=== PATIENT | male | born 1985 | race Caucasian/White ===

== ENCOUNTER 2020-04-16 18:42 | Emergency (ER) | payer OTHER, SELFPAY ==
--- NOTE | ~2020-04-16 | XR_ITS ---
EXAMINATION: XR hand LT min 3V DATE: 04/16/2020 20:07 INDICATION: Left hand injury with swelling and erythema TECHNIQUE: Posteroanterior, oblique and lateral views of the left hand were obtained. COMPARISON: 06/28/2005 FINDINGS: Alignment is normal. No fracture. Joint spaces are normal. Soft tissue swelling about the hands most prominent at the base and radial side of the second digit. IMPRESSION: 1. No osseous abnormality. Reviewed, dictated and finalized at location . UITER IMPRESSION: 1. No osseous abnormality.
[2020-04-16 18:46] VITALS: BP 115/70; PULSE 99; RESP 14; TEMP 36.2; O2SAT 99
--- NOTE | 2020-04-16 19:50 | PC.NURSE ---
resting on stretcher. ice water given. waiting for further orders from provider.
--- NOTE | 2020-04-16 20:03 | PC.NURSE ---
xray being done in room.
--- NOTE | 2020-04-16 20:16 | ED.GENADULT ---
HPI - General Adult General Chief complaint: Extremity Injury, Upper Stated complaint: left hand injury Time Seen by Provider: 04/16/20 18:57 Source: patient Mode of arrival: ambulatory Limitations: no limitations History of Present Illness HPI narrative: Patient presents with chief complaints of swelling to the base of the left second digit that is spreading and appears to be cellulitic. Patient states that he was playing with a knife yesterday when he nicked the knuckle of the finger. Patient states that he has had MRSA involved cellulitis in the past and so he wanted to come to the emergency department due to the pain concern for cellulitis again. Patient reports the area is very painful, erythematous and tender. He denies any fever, chills, nausea, vomiting, diarrhea, lethargy or any other symptoms. Patient states that he feels that he may have nicked the bone when he accidentally stabbed himself in the knuckle with the knife. Related Data Allergies Allergy/AdvReac Type Severity Reaction Status Date / Time milk Allergy Unknown Verified 09/12/10 17:07 Review of Systems Review of Systems: Narrative: CONSTITUTIONAL: Denies fever, chills, or sweats. EYES: Denies visual changes, redness, or discharge. ENT: Denies rhinorrhea, congestion, sore throat, or otalgia. CARDIOVASCULAR: Denies chest pain, palpitations, or edema. RESPIRATORY: Denies cough or dyspnea. GASTROINTESTINAL: Denies abdominal pain, nausea, vomiting, or diarrhea. GENITOURINARY: Denies dysuria or hematuria. SKIN: Reports swelling, erythema to left second digit denies rash or itching. MUSCULOSKELETAL: Denies back pain, joint pain, or myalgia. NEUROLOGIC: Denies headache, numbness, dizziness, or weakness. PSYCHIATRIC: Denies anxiety or depression. [facility] Family History Family History (Updated 01/22/14 @ 07:13 by DOCTOR UNKNOWN) Grandparent Hypertension Family history of coronary artery disease Diabetes mellitus Social History Social History Alcohol intake: never Exam Narrative: Exam Narrative: GENERAL: Well-appearing, well-nourished, and in no acute distress. HEAD: Normocephalic, atraumatic. EYES: PERRLA and EOMI. CHEST: Clear to auscultation. No respiratory distress. No wheezes rales or rhonchi HEART: Regular rate and rhythm. No murmur heard. Normal peripheral pulses. EXTREMITIES: Erythema, edema, and warmth to the base of the second left digit that is spreading down the finger and both laterally and medially. alondra craig seen dorsally to the digits. no drainage noted. SKIN: Warm, dry, no rash. NEURO: No focal deficits. Alert and oriented x3. PSYCH: Normal mood and affect. Course Vital Signs Vital signs: Vital Signs Temperature 97.1 F L 04/16/20 18:46 Pulse Rate 99 04/16/20 18:46 Respiratory Rate 14 04/16/20 18:46 Blood Pressure 115/70 04/16/20 18:46 Pulse Oximetry 99 04/16/20 18:46 Temperature 97.1 F L 04/16/20 18:46 Pulse Rate 99 04/16/20 18:46 Respiratory Rate 14 04/16/20 18:46 Blood Pressure 115/70 04/16/20 18:46 Pulse Oximetry 99 04/16/20 18:46 Medical Decision Making MDM Narrative Medical decision making narrative: Patient definitely has cellulitis noted to the hand. Patient has a history of MRSA so we will put on Bactrim as he denies any allergies to any antibiotics. Patient has been instructed to follow-up with primary care on Sunday for reevaluation of skin. Patient encouraged to wash with antibacterial soap and apply antibacterial ointment and to follow-up sooner if there are any worsening or emergent symptoms. Vital Signs Vital Signs: Vital Signs Temperature 97.1 F L 04/16/20 18:46 Pulse Rate 99 04/16/20 18:46 Respiratory Rate 14 04/16/20 18:46 Blood Pressure 115/70 04/16/20 18:46 Pulse Oximetry 99 04/16/20 18:46 Temperature 97.1 F L 04/16/20 18:46 Pulse Rate 99 04/16/20 18:46 Respiratory Rate 14 04/16/20 18:46 Blood Pressure 115/70 04/16/20 18:46 Pulse O
[2020-04-16] MEDS: KETOROLAC 30 MG/ML VIAL (*BKC) IM (20:55)
--- NOTE | 2020-04-16 20:55 | PC.NURSE ---
patient given toradol for pain. waiting for xray results. warm blanket given. lights off.
[2020-04-16 21:30] VITALS: BP 160/78; PULSE 88; RESP 22; O2SAT 100
== END 2020-04-16 21:30 | disposition home or self-care (01) ==
PROVIDERS: Emergency Provider Emergency Medicine; PCP Family Medicine
DX: L03.012 Cellulitis of left finger (principal); Z86.14 Personal history of Methicillin resistant Staphylococcus aureus infection
CPT/HCPCS: 73130; 96372; 99283; J1885

== ENCOUNTER 2021-06-04 14:21 | Emergency (ER) | payer OTHER, SELFPAY ==
--- NOTE | ~2021-06-04 | XR_ITS ---
EXAMINATION: XR shoulder RT min 2V INDICATION: Right shoulder pain TECHNIQUE: Four views of the right shoulder are submitted. COMPARISON: None FINDINGS: Normal alignment. No fracture. Glenohumeral and acromioclavicular joint spaces are normal. Soft tissues are unremarkable. IMPRESSION: 1. No acute osseous abnormality. Reviewed, dictated and finalized at location [employer]
[2021-06-04 14:29] VITALS: BP 108/76; PULSE 90; RESP 18; TEMP 36.6; O2SAT 100
--- NOTE | 2021-06-04 17:39 | ED.UPPEXIN ---
HPI - Extremity Injury (Upper) General Chief Complaint: Extremity Injury, Upper Stated Complaint: arm pain Time Seen by Provider: 06/04/21 17:25 Source: patient Mode of arrival: ambulatory Limitations: no limitations History of Present Illness HPI narrative: This is a 35 year old male who presents for evaluation of right shoulder pain. Patient states he has having some pain last night. His pain worsened this morning when he went to reach . His pain is located in anterior and posterior shoulder. Pain is worse with movement and he states he feels pop. He denies numbness or tingling. He has taken ibuprofen for his pain. Related Data Allergies Allergy/AdvReac Type Severity Reaction Status Date / Time milk AdvReac Unknown Diarrhea Verified 06/04/21 17:15 ketorolac [From Toradol] AdvReac Itching Verified 06/04/21 17:15 Review of Systems Review of Systems: All systems reviewed & are unremarkable except as noted in HPI and below PMFSH Past Medical History Medical History (Updated 06/04/21 @ 18:47 by Irish Tejeda MD) Patient denies medical problems Surgical History Surgical History (Updated 06/04/21 @ 17:52 by Irish Tejeda MD) No pertinent past surgical history Family History Family History (Updated 01/22/14 @ 07:13 by DOCTOR UNKNOWN) Grandparent Hypertension Family history of coronary artery disease Diabetes mellitus Social History Social History Alcohol intake: never Exam Const: General: no acute distress and alert Orientation/consciousness: patient oriented x3 Eyes: EOM: EOMs intact bilaterally Chest: Chest palpation & inspection: normal inspection of the chest Resp: Effort & Inspection: normal respiratory effort and no retractions Auscultation: clear to auscultation bilaterally Cardio: Rate: regular rate Rhythm: regular rhythm Heart sounds: no murmurs GI: GI Palp: Yes Soft to palpation, No Tenderness to palpation present (GI) and No Guarding due to palpation present (GI) Auscultation: normal bowel sounds Neuro: General: patient oriented x3, moves all extremities and CN's II-XI intact bilaterally Extrem: Other: ROM , strong radial pulse Psych: Mental Status: mental status grossly normal Affect: normal affect Course Reevaluation(s) Reevaluation #1: I discussed with patient xray is unremarkable and discharge plan Date: 06/04/21 Time: 17:55 Vital Signs Vital signs: Vital Signs Temperature 97.9 F 06/04/21 14:29 Pulse Rate 90 06/04/21 14:29 Respiratory Rate 18 06/04/21 14:29 Blood Pressure 108/76 06/04/21 14:29 Pulse Oximetry 100 06/04/21 14:29 Temperature 97.9 F 06/04/21 14:29 Pulse Rate 90 06/04/21 14:29 Respiratory Rate 18 06/04/21 14:29 Blood Pressure 108/76 06/04/21 14:29 Pulse Oximetry 100 06/04/21 14:29 MDM - Extremity Injury (Upper) Imaging Data Radiologist's impression: ITS Impressions Shoulder X-Ray 06/04/21 18:21 IMPRESSION: 1. No acute osseous abnormality. Discharge Plan Discharge Clinical Impression: Right shoulder strain Qualifiers: Encounter type: initial encounter Qualified Code(s): S46.911A - Strain of unspecified muscle, fascia and tendon at shoulder and upper arm level, right arm, initial encounter Patient Disposition: Home, Self-Care Condition: Stable Instructions: Antibiotic Form, Shoulder Sprain (ED), Exercises for Internal and External Shoulder Rotation (ED) Additional Instructions: Follow up with your primary care physician regarding your pain if it does not improve Prescriptions: New naproxen 500 mg tablet,delayed release (DR/EC) 500 mg PO BID PRN (Reason: pain) Qty: 14 RF: 0 cyclobenzaprine 10 mg tablet 10 mg PO TID PRN (Reason: muscle spasm) Qty: 10 RF: 0 Follow-up/Referrals: UNKNOWN,DOCTOR [Primary Care Provider] -
[2021-06-04] MEDS: CYCLOBENZAPRINE HCL 10 MG TABLET PO (17:43)
[2021-06-04 19:01] VITALS: BP 110/76; PULSE 87; RESP 15; O2SAT 99
== END 2021-06-04 19:02 | disposition home or self-care (01) ==
PROVIDERS: Emergency Provider General Practice
DX: S46.911A Strain of unspecified muscle, fascia and tendon at shoulder and upper arm level, right arm, initial encounter (principal); X50.9XXA Other and unspecified overexertion or strenuous movements or postures, initial encounter
CPT/HCPCS: 73030; 99283; A9270

== ENCOUNTER 2024-08-24 23:20 | Emergency (ER) | payer OTHER, SELFPAY ==
--- NOTE | ~2024-08-24 | CT_ITS ---
CT scan of the left hand Clinical history puncture injury to thumb, pain and swelling TECHNIQUE: Following intravenous administration of 100 cc of Omnipaque 350 contrast material, axial i maging of the left hand was performed. Sagittal and coronal reformatted images were constructed. Dose reduction technique was used on this scan by utilizing automated exposure control and iterative kishan nstruction technique. The dose-length product (DLP) was 511.02 mGy-cm. Findings: No fracture or dislocation seen. No destructive change or periosteal reaction identified. J oint spaces are intact. No erosive or degenerative change identified. No significant joint effusion e vident. There is a 1.3 x 1.2 x 1.8 cm fluid collection in the palmar aspect of the thumb at the region of the interphalangeal joint and distal aspect of the proximal phalanx, closely associated with the flexor tendon, compatible with abscess. No other distinct soft tissue abnormality seen in the remainder of t he head. IMPRESSION: 1.3 x 1.2 x 1.8 cm presumed abscess in the volar aspect of the thumb near the interphalangeal joint, as detailed above. Reviewed, dictated and finalized at location . IMPRESSION: 1.3 x 1.2 x 1.8 cm presumed abscess in the volar aspect of the thumb near the i nterphalangeal joint, as detailed above.
--- OUTSIDE RECORDS SUMMARY | 2024-08-24 23:22 | XMS_ITS | Clinical Summary ---
Author Organization [facility] Address [address] [place] [id number] Care Team Providers Care Scientist Engineer Name Role Phone Unavailable Primary Care Provider Unavailabl e Allergies Active Allergy Reactions Criticality Noted Date Comments Ketorolac Tromethamine Hives 10/24/2022 Medications No known medications Social History Tobacco Use Types Packs/Day Years Used Date Smoking Tobacco: Every Day Cigarettes Smokeless Tobacco: Never Tobacco Cessation:Ready to Q uit: Not Asked; Counseling Given: Not Answered Alcohol Use Standard Drinks/Week Comments Not Currently 0 (1 standard drink = 0.6 oz pur e alcohol) Sex and Gender Information Value Date Recorded Sex Assigned at Not on file Legal Sex Male 4:19 PM CDT Gender Identity Not on file Sexual Orientation Not on file Last Filed Vital Signs Vital Sign Reading Time Taken Comments Blood Pressure 101/51 10/29/2022 10:56 PM CDT Pulse 82 10/29/2022 10:56 PM CDT Temperature 36.9 C (98.4 F) 10/29/2022 10:56 PM CDT Respiratory Rate 20 10/29/2022 10:56 PM CDT Oxygen Saturation 98% 10/29/2022 10:56 PM CDT Inhaled Oxygen Concentration - - Weight 68 kg (150 lb) 10/24/2022 4:12 PM CDT Height 175.3 cm (5' 9 ) 10/24/2022 4:12 PM CDT Body Mass Index 22.15 10/24/2022 4:12 PM CDT Plan of Treatment Health Maintenance Due Date Last Done Comments Annual Physical 1987 Pneumococcal Vaccine: Pediat rics (0 to 5 Years) and At-Risk Patients (6 to 64 Years) (1 of 2 - PCV) 1990 Hepatitis C 2002 DTaP, Tdap and Td Vaccines ( 1 - Tdap) 2003 Hepatitis B Vaccines (1 of 3 - 19+ 3-dose series) 2003 COVID-19 Vaccine ( - 2023-2 5 season) 2024 Influenza Adult (#1) 2024 PHQ-2 (Physician [place]) 05/28/2024 HPV Vaccines Aged Out No longer eligi ble based on patient's age to complete this topic Meningococcal B Vaccine Aged Out No l onger eligible based on patient's age to complete this topic Meningococcal Vaccine Aged Out No jose wang eligible based on patient's age to complete this topic RSV Immunizations Under 20 Months Aged Out No longer eligible based on patient's age to complete this topic Additional Health Concerns Infection Onset Date Last Indicated MRSA 01/03/2017 01/03/2017 Insurance
[2024-08-24 23:24] VITALS: BP 135/96; PULSE 87; RESP 18; TEMP 36.6; O2SAT 100
[2024-08-24] MEDS: MORPHINE SULFATE (*CRX) 4 MG/ML INJ IV PUSH (23:46)
[2024-08-24 23:53] LABS: Basophils Absolute Auto 0.02 K/mm3 (0.00-0.10); Basophils Percent Auto 0.1 % (0.0-1.0); Eosinophils Absolute Auto 0.02 K/mm3 (0.02-0.50); Eosinophils Percent Auto 0.1 % (1.0-6.0); Hematocrit 41.5 % (40.0-54.0); Hemoglobin 13.9 g/dL (14.0-18.0); Immature Granulocyte Absolute 0.08 K/mm3 (0.00-0.00); Immature Granulocyte Percent A 0.5 % (0.0-0.0); Lymphocytes Absolute Auto 2.34 K/mm3 (1.10-4.50); Lymphocytes Percent Auto 15.4 % (18.0-42.0); Mean Corpuscular HGB Conc 33.5 g/dL (32-36); Mean Corpuscular Hemoglobin 29.8 pg (27.0-31.0); Mean Corpuscular Volume 88.9 fL (78.0-102.0); Mean Platelet Volume 9.5 fl (8.7-11.0); Monocytes Absolute Auto 1.29 K/mm3 (0.10-0.90); Monocytes Percent Auto 8.5 % (2.0-11.0); Neutrophils Absolute Auto 11.44 K/mm3 (1.70-7.20); Neutrophils Percent Auto 75.4 % (50.0-70.0); Platelet Count Result 257 K/mm3 (150-420); Red Blood Count 4.67 M/mm3 (4.70-6.10); Red Cell Distribution Width 11.9 % (11.6-14.4); White Blood Count 15.2 K/mm3 (4.8-10.8)
--- NOTE | 2024-08-24 23:59 | ED_ITS ---
HPI - Skin/Abscess/Foreign Bdy General Chief complaint: Skin/Abscess/Foreign Body Stated complaint: swelling Time Seen by Provider: 08/24/24 23:27 Source: patient Mode of arrival: ambulatory Limitations: no limitations History of Present Illness HPI narrative: Patient is a 39-year-old male with a left hand injury from a mechanical tool from work. He did this 4 days ago. It has gotten worse today. He has pain in the thumb. Tetanus shot up-to-date in the past 5 years. complaint: other ( Swelling and pain of the left thumb) Onset (ago): day(s) (4) Tetanus up to date: unsure Location: LUE and L hand ( left thumb) Severity: moderate Severity scale (1-10): 7 Quality: sharp Pain Consistency: constant Relieving factors: none Exacerbating factors: palpation and movement Context: other ( patient hit his left thumb with a mechanical tool 4 days ago and now has pain and swelling of the thumb and up the forearm) Associated symptoms: denies other symptoms Treatments prior to arrival: none Related Data Allergies Allergy/AdvReac Type Severity Reaction Status Date / Time milk AdvReac Unknown Diarrhea Verified 08/24/24 23:43 ketorolac (From Toradol) AdvReac Itching Verified 08/24/24 23:43 Review of Systems 2 Review of Systems: All systems reviewed & are unremarkable except as noted in HPI and below Constitutional: Constitutional: Reports no additional constitutional complaints Eyes: Eyes: Reports no additional eye complaints ENT: Reports system reviewed and no additional complaints, except as documented Cardiovascular: Cardiovascular: Reports no additional cardiovascular complaints Respiratory: Respiratory: Reports no additional respiratory complaints Gastrointestinal: Gastrointestinal: Reports no additional gastrointestinal complaints Genitourinary: Genitourinary: Reports no additional male genitourinary complaints Musculoskeletal: Musculoskeletal: Reports no additional musculoskeletal complaints Integumentary/Breasts: Skin/Breast: Reports system reviewed and no additional complaints, except as docu Neurologic: Reports system reviewed and no additional complaints, except as documented Psychiatric: Psychiatric: Reports no additional psychiatric complaints Endocrine: Endocrine: Reports no additional endocrine complaints Hematologic/Lymphatic: Hematologic/Lymphatic: Reports no additional hematologic/lymphatic complaints Allergic/Immunologic: Allergic/Immunologic: Reports no additional allergic/immunologic complaints PMFSH Past Medical History Medical History Patient denies medical problems Surgical History Surgical History No pertinent past surgical history Family History Family History Grandparent Hypertension Family history of coronary artery disease Diabetes mellitus Social History Social History Alcohol intake: never Exam 2 Const: General: healthy appearing Nutritional Appearance: well nourished Orientation/consciousness: patient oriented x3 HENMT: Head: normal to inspection Ears: external ears normal F sia/Nose/Sinus: Normal external nose present Eyes: Conjunctivae: conjunctivae normal Pupils: Equal, round and reactive pupils present EOM: EOMs intact bilaterally Neck: Neck: normal visual inspection Chest: Chest palpation & inspection: normal inspection of the chest Resp: Effort & Inspection: normal respiratory effort and not labored A uscultation: clear to auscultation bilaterally and no crackles Cardio: Rate: regular rate Rhythm: regular rhythm Heart sounds: no murmurs GI: Inspection: non-distended Auscultation: normal bowel sounds and bowel sounds present : General: Yes bladder normal to palpation Back/Spine/Pelvis: Back: no CVA tenderness Skin: General skin exam: normal color Rashes: no rashes Wounds: wound noted Other: left thumb is swollen and tender with erythema to the base of the left hand and up the forearm Neuro: General: patient oriented x3 Cranial nerves: Yes Nystagmus not present Speech: normal speech Gait exam (Neuro): Normal gait present Extrem: General: normal to inspection Psych: Mental Status: mental status grossly normal Affect: normal affect Attitude: cooperative Course Vital Signs Vital signs: Vital Signs Temperature 36.6 C 08/24/24 23:24 Pulse Rate 87 08/24/24 23:24 Respiratory Rate 18 08/24/24 23:24 Blood Pressure 135/96 H 08/24/24 23:24 Pulse Oximetry 100 08/24/24 23:24 Oxygen Delivery Room Air 08/24/24 23:24 Temperature 36.6 C 08/24/24 23:24 Pulse Rate 87 08/24/24 23:24 Respiratory Rate 18 08/24/24 23:24 Blood Pressure 135/96 H 08/24/24 23:24 Pulse Oximetry 100 08/24/24 23:24 Oxygen Delivery Room Air 08/24/24 23:24 MDM - Skin/Abscess/Foreign Bdy MDM Narrative Medical decision making narrative: patient is a 39-year-old male with left hand pain and swelling at the thumb secondary to a mechanical tool /nail gun shooting across this area 4 days ago. Will get labs and a CT scan. Tetanus shot up-to-date in the past 5 years. I discussed the case with [facility] hand surgeon and they said for him to be transferred up there to the ER for further evaluation of his thumb and probable procedure tonight. Lab Data Attestation: I reviewed the patient's lab results. 08/24/24 23:27 08/24/24 23:27 Labs: Lab Results 08/24/24 08/24/24 Range/Units 23:27 23:36 WBC 15.2 H (4.8-10.8) K/mm3 RBC 4.67 L (4.70-6.10) M/mm3 Hgb 13.9 L (14.0-18.0) g/dL Hct 41.5 (40.0-54.0) % MCV 88.9 (78.0-102.0) fL MCH 29.8 (27.0-31.0) pg MCHC 33.5 (32-36) g/dL RDW 11.9 (11.6-14.4) % Plt Count 257 (150-420) K/mm3 MPV 9.5 (8.7-11.0) fl Immature Gran % (Auto) 0.5 H (0.0-0.0) % Neut % (Auto) 75.4 H (50.0-70.0) % Lymph % (Auto) 15.4 L (18.0-42.0) % [place] % (Auto) 8.5 (2.0-11.0) % Eos % (Auto) 0.1 L (1.0-6.0) % Baso % (Auto) 0.1 (0.0-1.0) % Lymph # (Auto) 2.34 (1.10-4.50) K/mm3 [place] # (Auto) 1.29 H (0.10-0.90) K/mm3 Eos # (Auto) 0.02 (0.02-0.50) K/mm3 Baso # (Auto) 0.02 (0.00-0.10) K/mm3 Abs Immat Gran (auto) 0.08 H (0.00-0.00) K/mm3 Absolute Neuts (auto) 11.44 H (1.70-7.20) K/mm3 Absolute Nucleated RBC 0.00 (0.00-0.00) K/mm3 Nucleated RBC % 0.0 (0-0.0) % Sodium 138 (136-145) mmol/L Potassium 3.2 L (3.5-5.1) mmol/L Chloride 100 (98-108) mmol/L Carbon Dioxide 30 (21-32) mmol/L Anion Gap 8 (4-12) mmol/L BUN 14 (7-18) mg/dL Creatinine 1.00 (0.70-1.30) mg/dL Estim Creat Clear Calc 75 ml/min Estimated GFR > 60 (59 - ) Glucose 164 H (70-99) mg/dL Calculated Osmolality 290 (285-295) mOsm/kg Lactic Acid 1.7 (0.4-2.0) mmol/L Calcium 8.5 (8.5-10.1) mg/dL Total Bilirubin 1.1 H (0.00-1.00) mg/dL AST 13 L (15-37) U/L ALT 16 (16-63) U/L Alkaline Phosphatase 112 (46-116) U/L Lactate Dehydrogenase 161 (85-227) U/L Total Protein 6.7 (6.4-8.2) g/dL Albumin 3.7 (3.4-5.0) g/dL Imaging Data Attestation: I personally reviewed and interpreted this imaging study as follows: Radiologist's impression: CT scan with contrast of the left hand shows a thumb with abscess formation likely Discharge Plan Discharge Clinical Impression: Abscess of left thumb Patient Disposition: Acute Care Hospital Condition: Stable Patient Language: Swazi Prescriptions: No Action naproxen 500 mg tablet,delayed release (DR/EC) 500 mg PO BID PRN (Reason: pain) Qty: 14 0RF cyclobenzaprine 10 mg tablet 10 mg PO TID PRN (Reason: muscle spasm) Qty: 10 0RF Follow-up/Referrals: Savi Hernandez MD [Primary Care Provider] - Time of Disposition: 01:39
[2024-08-25 00:04] LABS: Alanine Aminotransferase 16 U/L (16-63); Albumin Level 3.7 g/dL (3.4-5.0); Alkaline Phosphatase 112 U/L (46-116); Anion Gap 8 mmol/L (4-12); Aspartate Amino Transferase 13 U/L (15-37); Bilirubin,Total 1.1 mg/dL (0.00-1.00); Blood Urea Nitrogen 14 mg/dL (7-18); Calcium 8.5 mg/dL (8.5-10.1); Carbon Dioxide 30 mmol/L (21-32); Chloride 100 mmol/L (98-108); Estimated CRCL calculation 75 ml/min; Estimated Glomerular Filt Rate > 60; Glucose 164 mg/dL (70-99); Lactate Dehydrogenase 161 U/L (85-227); Osmolality Calculated 290 mOsm/kg (285-295); Potassium 3.2 mmol/L (3.5-5.1); Sodium 138 mmol/L (136-145); Total Protein 6.7 g/dL (6.4-8.2)
[2024-08-25 00:23] LABS: Lactic Acid Reflex 1.7 mmol/L (0.4-2.0)
[2024-08-25] MEDS: HYDROmorphone HCL INJ (*CRX) 2 MG/ML VIAL 0.5 MG IV PUSH (00:52)
[2024-08-25] MEDS: POTASSIUM CHLORIDE 20 MEQ ER TABLET PO (02:09)
[2024-08-25 02:53] VITALS: BP 123/74; PULSE 57; RESP 18; TEMP 36.3; O2SAT 96
--- NOTE | 2024-08-27 13:16 | PC.NURSE ---
blood culture preliminary no growth
== END 2024-08-25 03:00 | disposition short-term general hospital (02) ==
PROVIDERS: Emergency Provider Emergency Medicine; PCP Internal Medicine
DX: L02.512 Cutaneous abscess of left hand (principal)
CPT/HCPCS: 36415; 73201; 80053; 83605; 83615; 85025; 87040; 96365; 96374; 96375; 99285; A9270; J0696; J1171; J2270; Q9967